=== PATIENT | female | born 1950 | race African-American/Black ===

== ENCOUNTER 2017-12-15 11:16 | Emergency (ER) | payer OTHER ==
[~2017-12-15] VITALS: Ht 160 cm; Wt 104.3 kg
[~2017-12-15 11:16] MED LIST: ACETAMINOPHEN325 M1 PO; ALLEGRA ALLERG180 MG PO; ASPIRIN EC81 M1 PO; ATIVAN1 MG PO; BENZTROPINE ME0.5 MG PO; CLONIDINE PO; CONSTULOSE10 GM/152 PO; DEPAKOTE500 MG PO; DILANTIN100 MG PO; HALDOL5 MG/1 ML IM; HALOPERIDOL10 MG PO; HYDROCHLOROTHIA25 M1 PO; IBUPROFEN 800800 M1 PO; LIPITOR20 MG PO; LISINOPRIL40 MG PO; LOPRESSOR100 MG PO; LORAZEPAM 2MG2 MG/M1 IM; NEXIUM20 M1 PO; NIFEDICAL XL60 MG PO; NORCO 5-325 TA1 EACH PO; ONDANSETRON HCL4 M3 PO; PHENYTOIN SODI100 M3 PO; PRENATAL COMPL1 EACH PO; PRINIVIL20 MG PO; SENNA S TABLET1 EACH PO; SEROQUEL 25 MG25 MG PO; SEROQUEL 50 MG50 MG PO; SPIRONOLACTONE50 MG PO; TUMS PO; ZANTAC 150MG T150 M1 PO
[2017-12-15 12:03] LABS: ABSOLUTE NEUTROPHILS 3.4 thou/uL (1.4-8.2); BASOPHILS 0.5 % (0.0-2.0); EOSINOPHILS 0.6 % (0.0-3.0); HEMATOCRIT 39.2 % (37.0-47.0); LYMPHOCYTES 36.7 % (24.0-44.0); MCH 28.9 pg (26.0-34.0); MCHC 33.1 g/dL (28.0-37.0); MCV 87.5 fL (80.0-100.0); MONOCYTES 7.8 % (1.0-8.0); PLATELET COUNT 138 thou/uL (150-400); POLYS 54.4 % (36.0-66.0); RBC 4.48 mil/uL (4.20-5.00); RDW 15.1 % (10.5-14.5); WBC 6.2 thou/uL (4.0-11.0)
[2017-12-15] MEDS ORDERED: LEVAQUIN 500 M500 M2 PO (12:14)
[2017-12-15] MEDS ORDERED: MUCINEX600 MG PO (12:16)
[2017-12-15] MEDS ORDERED: BISMATROL525 MG/15 PO (12:18)
[2017-12-15] MEDS ORDERED: ZYRTEC10 M2 PO (12:21)
[2017-12-15] MEDS ORDERED: ARICEPT 5 MG TAB5 MG PO (12:24)
[2017-12-15] MEDS ORDERED: MELATIN3 MG PO (12:24)
[2017-12-15 12:26] LABS: CALCIUM 9.8 mg/dL (8.5-10.1); CREATININE 1.3 mg/dL (0.6-1.0); POTASSIUM 5.5 mmol/L (3.5-5.1)
[2017-12-15] MEDS ORDERED: DEPAKOTE ER500 MG PO (12:31)
[2017-12-15 13:14] LABS: ALBUMIN 3.9 g/dL (3.4-5.0); DIRECT BILIRUBIN < 0.1 mg/dL (<0.1-0.3); LIPASE 298 U/L (73-393); SGOT 23 U/L (15-37); SGPT 23 U/L (30-65); TOTAL BILIRUBIN 0.3 mg/dL (<0.1-1.0); TOTAL PROTEIN 8.5 g/dL (6.4-8.2)
[2017-12-15] MEDS ORDERED: ZOFRAN ODT4 MG PO (14:18)
[2017-12-15] MEDS ORDERED: PHENERGAN 25 MG25 M1 PO (14:18)
[2017-12-15 14:44] VITALS: BP 131/76
== END 2017-12-15 14:40 | disposition home or self-care (01) ==
LOC: ER 11:16
PROVIDERS: Emergency Medicine
DX: R10.13 Epigastric pain (principal); R11.2 Nausea with vomiting, unspecified; N28.9 Disorder of kidney and ureter, unspecified; K21.9 Gastro-esophageal reflux disease without esophagitis; I10 Essential (primary) hypertension; Z88.8 Allergy status to other drugs, medicaments and biological substances

== ENCOUNTER 2019-07-15 19:47 | Inpatient (IN) | payer OTHER ==
[~2019-07-15] VITALS: Ht 157.5 cm; Wt 110.0 kg
--- NOTE | ~2019-07-15 | EKG ---
[facility] [address] [place] [address] ELECTROCARDIOGRAM REPORT Name: HARLEY TAYLOR Room #: [facility]..#: [id number] Admission: Attend Phys: Discharge: Date of : 54 Report #: [id number] THIS REPORT FOR: cc: VARGAS - Family physician unknown Jass Regan MD ~ THIS REPORT FOR: //name// [facility] ED Test Date: 2019-07-15 Test Time: 20:08:29 Pat Name: HARLEY TAYLOR Department: Room: Gender: F Blockmason: juan luis : 1950 Requested By: Fausto Cano Order Number: [id number] MD: Measurements Intervals [place] Rate: 67 P: 46 IL: 149 QRS: -4 QRSD: 93 T: 18 QT: 395 QTc: 417 Interpretive Statements Sinus rhythm Compared to ECG 09/16/2011 08:04:29 No significant changes [email or web address] By: 07 07 Jass Regan MD /EPI
[~2019-07-15 19:47] MED LIST changes: +ARICEPT 5 MG TAB5 MG PO; +BISMATROL525 MG/15 PO; +DEPAKOTE ER500 MG PO; +LEVAQUIN 500 M500 M2 PO; +MELATIN3 MG PO; +MUCINEX600 MG PO; +PHENERGAN 25 MG25 M1 PO; +ZOFRAN ODT4 MG PO; +ZYRTEC10 M2 PO
[2019-07-15 19:48] VITALS: BP 166/59
[2019-07-15 20:18] LABS: BE(vivo) -10.6 mmol/L (-2 to +3); HCO3 14.6 mmol/L (22.0-26.0); PCO2 30.3 mmHg (35.0-45.0); PO2 66.2 mmHg (80.0-100.0); sO2 91.5 % (92.0-98.0)
[2019-07-15 20:19] LABS: pH 7.301 (7.360-7.450)
[2019-07-15 20:38] LABS: HEMOGLOBIN 10.6 gm/dL (12.0-15.0); RDW 17.5 % (10.5-14.5)
[2019-07-15 20:40] LABS: HEMATOCRIT 33.8 % (37.0-47.0); MCH 28.6 pg (26.0-34.0); MCHC 31.4 g/dL (28.0-37.0); MCV 91.2 fL (80.0-100.0); RBC 3.71 mil/uL (4.20-5.00); WBC 3.5 thou/uL (4.0-11.0)
[2019-07-15 20:45] LABS: ANION GAP 16 mmol/L (7-16); BUN 21 mg/dL (7-18); CALCIUM 8.4 mg/dL (8.5-10.1); CHLORIDE 111 mmol/L (98-107); CO2 15 mmol/L (21-32); CREATININE 1.1 mg/dL (0.6-1.0); GLUCOSE 104 mg/dL (74-106); POTASSIUM 3.7 mmol/L (3.5-5.1); SODIUM 142 mmol/L (136-145)
--- NOTE | 2019-07-15 20:51 | NUR ---
CALL PLACED TO NURSE AT [facility] [place], SHE REFERRED ME TO HER DON, MESSAGE LEFT FOR HER TO CALL ME, JAM RN [phone]
[2019-07-15 20:54] LABS: ALBUMIN 3.2 g/dL (3.4-5.0); MAGNESIUM 1.3 mg/dL (1.8-2.4); SGOT 15 U/L (15-37); SGPT 13 U/L (30-65); TOTAL BILIRUBIN 0.3 mg/dL (<0.1-1.0); TROPONIN-I <0.06 ng/mL (<0.06)
[2019-07-15 20:55] LABS: APTT 24.8 Seconds (24.5-32.8); INR 1.2; PROTIME 12.3 Seconds (9.3-11.4)
[2019-07-15 21:04] LABS: ABSOLUTE NEUTROPHILS 2.2 thou/uL (1.4-8.2)
--- NOTE | 2019-07-15 21:05 | NUR ---
BRYSON FROM [facility], JAM, RETURNED CALL. PT IS NOT A DIALYSIS PT, IS A CHEMO PT AT [facility]. BELIEVES CANCER IS CERVICAL, SHE REPORTS THAT PT IS VERY PRIVATE ABOUT MEDICAL INFORMATION AND DOES NOT RELAY WILLINGLY INFORMATION REGARDING THIS MATTER. SHE DOES NOT KNOW WHAT THE LINE IS, PICC LINE OR SOME THING ELSE. DOES NOT KNOW IF PT IS RECEIVING XARELTO OR ANTIBIOTICS, OR WHY THEY WERE ORDERED.
[2019-07-15 21:06] LABS: ANISOCYTOSIS 1+; OVALOCYTES FEW; PLATELET COUNT 102 thou/uL (150-400); TEARDROPS 1+
--- NOTE | 2019-07-15 21:33 | NUR ---
RECEIVED CALL FROM [place], AND TALKED WITH NURSE DENIA, PILAR WAS PUT ON HOLD DAYS AGO, NO ACTUAL DATE KNOWN. WAS DISCONTINUED BY ONCOLOGY AT [facility]. SHE IS TO HAVE PROCEDURE DONE.
[2019-07-15 22:10] VITALS: BP 166/59
[2019-07-15 22:16] VITALS: BP 160/52
[2019-07-15 22:38] VITALS: BP 149/65
[2019-07-15 23:09] LABS: URINE BILIRUBIN NEGATIVE (Negative); URINE BLOOD NEGATIVE (Negative); URINE CLARITY CLEAR; URINE COLOR YELLOW; URINE GLUCOSE-RANDOM* NEGATIVE (Negative); URINE KETONES NEGATIVE (Negative); URINE LEUKOCYTES-REFLEX TRACE (Negative); URINE NITRITE-REFLEX NEGATIVE (Negative); URINE PROTEIN (DIPSTICK) TRACE (Negative); URINE SPECIFIC GRAVITY 1.025 (1.005-1.035); URINE UROBILINOGEN 0.2 E.U./dl (0.2-1.0)
[2019-07-15] MEDS ORDERED: PAZEO2.5 ML (23:09)
[2019-07-15] MEDS ORDERED: ROBAFEN100 MG/5 M PO (23:10)
[2019-07-15] MEDS ORDERED: COMPAZINE10 MG PO (23:10)
[2019-07-15] MEDS ORDERED: NORVASC 2.5 MG2.5 M1 PO (23:12)
[2019-07-15] MEDS ORDERED: CARVEDILOL25 MG PO (23:12)
[2019-07-15] MEDS ORDERED: ARNUITY ELLIPT50 MCG INH (23:14)
[2019-07-15] MEDS ORDERED: PEPCID20 MG PO (23:14)
[2019-07-15] MEDS ORDERED: HYDRALAZINE 2525 MG PO (23:15)
[2019-07-15] MEDS ORDERED: FUROSEMIDE 20 M20 MG PO (23:15)
[2019-07-15] MEDS ORDERED: NAMENDA 10 MG T10 MG PO (23:17)
[2019-07-15] MEDS ORDERED: METFORMIN PO (23:23)
[2019-07-15] MEDS ORDERED: POTASSIUM20 PO (23:24)
[2019-07-15] MEDS ORDERED: MONTELUKAST PO (23:24)
[2019-07-15 23:25] LABS: AMP/METHAMP Negative (Negative); BARBITURATES Negative (Negative); BENZODIAZEPINES Negative (Negative); COCAINE Negative (Negative); METHADONE Negative (Negative); OPIATES Negative (Negative); PCP Negative (Negative)
[2019-07-15] MEDS ORDERED: TRAZODONE 150150 M1 PO (23:25)
[2019-07-15] MEDS ORDERED: SERTRALINE HCL100 MG PO (23:25)
[2019-07-15] MEDS ORDERED: TRAMADOL 50 MG50 MG PO (23:26)
[2019-07-15] MEDS ORDERED: LOPERAMIDE 2 MG2 M1 PO (23:28)
--- NOTE | 2019-07-16 02:04 | NUR ---
ASSESSMENT: PT ARRIVED TO THE UNIT AT APPROXIMATELY 2243, ACCOMPANIED BY STAFF AND DAUGHTER. PT IS ALERT AND ORIENT TIMES 2-3. DID NOT ANSWER [facility] QUESTIONS CORRECTLY (SEE CHARTING). PT DOES SAY SOME INCOMPREHENSIBLE WORDING AND DOES NOT FOLLOW THE PROCESS OF WHAT IS BEING ASKED OF HER. SHE IS COOPERATIVE BUT DOES NOT GET IT CORRECTLY AT ALL TIMES WHAT IS REQUIRED OF HER. RIGHT EYE BLINDNESS PREVIOUS CVA. ABLE TO PIVOT TO BSC WITH ASSISTANCE. SEIZURE PRECAUTION AND BED ALARM IN PLACE. C/O HAVING A HEADACHE, TYLENOL GIVEN WITH PARTAL RESULTS. DAUGHTER ANSWERED MOST OF THE ADMIT QUESTIONS BECAUSE PT WAS NOT ALWAY ACCURATE, Thomas YOUNG. TOURIST ESCORT WAS AT THE BEDSIDE EARLIER. ORDERS FOLLOWED. VSS, AFEBRILE. SCHEDULED MRI/US FOR THE AM. WILL CONTINUE TO MONITOR.
[2019-07-16 03:44] LABS: CALCIUM 8.3 mg/dL (8.5-10.1); CREATININE 0.9 mg/dL (0.6-1.0); POTASSIUM 3.4 mmol/L (3.5-5.1)
[2019-07-16 03:51] LABS: HEMOGLOBIN 9.4 gm/dL (12.0-15.0); MCHC 31.5 g/dL (28.0-37.0); MCV 88.7 fL (80.0-100.0); RBC 3.38 mil/uL (4.20-5.00); RDW 17.1 % (10.5-14.5); WBC 2.6 thou/uL (4.0-11.0)
[2019-07-16 03:55] LABS: CHOLESTEROL 91 mg/dL (<200); HDL CHOLESTEROL 41 mg/dL (>40); LDL CHOLESTEROL 27 mg/dL (<100); TC:HDL 2.2 Ratio (Not establshd); TRIGLYCERIDE 117 mg/dL (<150); VLDL 23 mg/dL (<40)
[2019-07-16 04:00] VITALS: BP 145/58
[2019-07-16 04:03] LABS: SERUM ASSESSMENT Clear
--- NOTE | 2019-07-16 05:07 | NUR ---
ASSESSMENT: PT WAS ADMITTED WITH RIGHT UPPER ARM PICC. PT USES PICC FOR CHEMO/RADIATION TREATMENTS AT [facility]. THIS DL PICC IS PATENT AND INTACT. DRESSING WAS CHANGED UPON ARRIVAL TO HER ROOM. NS @ 125ML/HR IS CURRENTLY INFUSING. THIS RN LEFT A VOICE MESSAGE TO THE IV TEAM ALERTING THEM OF THE SAID PICC.
[2019-07-16 08:07] VITALS: BP 153/58
[2019-07-17 04:06] LABS: GLYCOHEMOGLOBIN (HGB A1C) 5.7 % (4.8-5.6)
--- NOTE | 2019-07-17 07:01 | NUR ---
RECEIVED ORDER FOR OT EVALUATION. PATIENT DISCHARGED PRIOR TO OT EVALUATION WAS ABLE TO BE INITIATED.
== END 2019-07-16 11:10 | DRG 70 ==
LOC: ER 19:47 → EROBS 21:40 → 3W 22:22
PROVIDERS: Emergency Medicine; Nurse Practitioner Family; ADMIT Hospitalist
DX: G93.41 Metabolic encephalopathy (principal); D61.810 Antineoplastic chemotherapy induced pancytopenia; I69.351 Hemiplegia and hemiparesis following cerebral infarction affecting right dominant side; Z68.41 Body mass index [BMI] 40.0-44.9, adult; E87.2 Acidosis; D61.818 Other pancytopenia; E83.42 Hypomagnesemia; R53.1 Weakness; F03.90 Unspecified dementia, unspecified severity, without behavioral disturbance, psychotic disturbance, mood disturbance, and anxiety; K21.9 Gastro-esophageal reflux disease without esophagitis; F20.9 Schizophrenia, unspecified; E66.9 Obesity, unspecified; R41.82 Altered mental status, unspecified; C76.0 Malignant neoplasm of head, face and neck; D32.9 Benign neoplasm of meninges, unspecified; G40.909 Epilepsy, unspecified, not intractable, without status epilepticus; H54.7 Unspecified visual loss; J32.9 Chronic sinusitis, unspecified; F32.9 Major depressive disorder, single episode, unspecified; I11.0 Hypertensive heart disease with heart failure; I50.9 Heart failure, unspecified; T45.1X5A Adverse effect of antineoplastic and immunosuppressive drugs, initial encounter; Y92.89 Other specified places as the place of occurrence of the external cause; Z79.2 Long term (current) use of antibiotics; Z79.82 Long term (current) use of aspirin; Z79.891 Long term (current) use of opiate analgesic; Z79.899 Other long term (current) drug therapy; Z88.8 Allergy status to other drugs, medicaments and biological substances
CPT/HCPCS: 10879